=== PATIENT | male | born 1985 | race Two or more races ===

== ENCOUNTER 2021-02-27 17:43 | Emergency (ER) | payer OTHER ==
[~2021-02-27] VITALS: Ht 165.1 cm; Wt 83.9 kg
[2021-02-27] MEDS: HYDROCODONE/APAP 5-325MG TABLET PO ONE ×2 (18:00→19:00)
[2021-02-27] MEDS: CYCLOBENZAPRINE HCL 10 MG TABLET PO ONE ×2 (18:00→19:00)
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
[2021-02-27] MEDS ORDERED: CYCL10TA9 PO (18:34)
[2021-02-27] MEDS ORDERED: HYDR-4209 PO (18:34)
[2021-02-27] MEDS ORDERED: NAPR-1009 PO (18:34)
[2021-02-27] MEDS ORDERED: HYDROCODONE/APAP 5-325MG TABLET ONE (19:09)
[2021-02-27] MEDS ORDERED: CYCLOBENZAPRINE HCL 10 MG TABLET ONE (19:10)
--- NOTE | 2021-02-27 19:17 | NUR ---
Patient discharged to home in stable condition. Written and verbal after care instructions given. Patient verbalizes understanding of instructions. Stressed follow up or return to ER for worsening s/s. Pt. ambulating with steady gait. Pt. driven home by friend/family.
[2021-02-27 19:18] VITALS: BP 134/94
== END 2021-02-27 19:15 | disposition home or self-care (01) ==
LOC: ER 17:45
DX: S16.1XXA Strain of muscle, fascia and tendon at neck level, initial encounter (principal); R07.89 Other chest pain; S39.012A Strain of muscle, fascia and tendon of lower back, initial encounter; V43.52XA Car driver injured in collision with other type car in traffic accident, initial encounter; Y92.414 Local residential or business street as the place of occurrence of the external cause
CPT/HCPCS: 71045; 93005; A4663